=== PATIENT | female | born 2005 | race Caucasian/White ===

== ENCOUNTER 2025-06-16 09:34 | Emergency (ER) | payer BC, SELFPAY ==
[2025-06-16 09:35] VITALS: BP 125/110; PULSE 156; RESP 18; TEMP 36.6; O2SAT 100; BMI 21.6
--- NOTE | 2025-06-16 10:00 | EKG12_ITS ---
Test Reason : PALP Blood Pressure : */* mmHG Vent. Rate : 150 BPM Atrial Rate : 150 BPM P-R Int : 128 ms QRS Dur : 74 ms QT Int : 266 ms P-R-T Axes : 81 83 59 degrees QTcB Int : 420 ms Critical Test Result: High HR Sinus tachycardia Nonspecific ST abnormality Abnormal ECG Confirmed by ELVI MO, ROSI ([id number]), television news video editor KORINA ALFORD ([id number]) on 06/18/2025 7:47:22 AM Referred By: ER Confirmed By: ROSI BOLES MD
--- NOTE | 2025-06-16 10:00 | RAD_ITS ---
PROCEDURE: CHEST PA AND LATERAL 06/16/2025 REASON FOR EXAM: CHEST PAIN TECHNIQUE: Procedure Code: RADCXR Modality: DX Procedure: CHEST PA AND LATERAL COMPARISON: None FINDINGS: Hardware and support lines: None. Heart: Negative. Lungs: Negative for infiltrates, or pulmonary edema. Pleura: No pleural thickening. No pleural effusion. Mediastinum and aorta: Negative for hilar adenopathy. Normal thoracic aorta. Bones: Negative for fractures. Other: Remainder of the exam negative. RAD/Chest PA and Lateral IMPRESSION: Negative chest. Reading Location: [id number]
[2025-06-16 10:12] LABS: Hematocrit 47.6 % (37-47); Hemoglobin 16.3 g/dL (12.0-15.0); Immature Granulocytes Count 0.030 X10^3/uL (0.0-0.0); Mean Corp Hgb Conc 34.2 g/dL (32-36); Mean Corpuscular Volume 85.9 fL (81-99); Mean Platelet Vol. 9.8 fl (6.2-12.0); NRBC Flagged by Analyzer 0 % (0-5); Platelet Count 317 K/mm3 (150-450); RBC Distribution Width CV 12.7 % (11.6-14.6); RBC Distribution Width SD 40.1 fl (35.1-43.9); Red Blood Count 5.54 M/mm3 (4.2-5.4); White Blood Count 9.1 K/mm3 (4.4-11.0)
[2025-06-16 10:32] LABS: D-Dimer Quantitative (DVT/PE) < 0.27 FEU/ug/m (0.27-0.49)
[2025-06-16 10:34] VITALS: BP 125/93; PULSE 118
[2025-06-16 10:35] LABS: Anion Gap 16 (5-15); BUN 15 mg/dL (4-19); BUN/Creat Ratio 19.9 RATIO (10-20); Calcium,Total 9.8 mg/dL (7.6-11.0); Carbon Dioxide 21.1 mmol/L (21.0-32.0); Chloride 104 mmol/L (98-108); Estimated Creatinine Clearance 106.25 ml/min (50-250); Glucose 102 mg/dL (70-99); Magnesium 2.4 mg/dL (1.5-2.2); Potassium 3.7 mmol/L (3.3-5.1); Troponin T High Sensitivity < 6 ng/L (<=14)
[2025-06-16] MEDS: 0.9% Normal Saline (1000mL) 1,000 ML 999 ML IV (10:46)
[2025-06-16 11:00] VITALS: BP 125/93; PULSE 108; RESP 14; TEMP 36.7; O2SAT 100
--- NOTE | 2025-06-16 11:01 | EX.ED.DYSGE1 ---
HPI History of Present Illness Chief Complaint: Palpitations Narrative Narrative: Patient is a 19-year-old female presenting to the emergency department for racing heart rate. Patient has a past medical history of anxiety, treated since she was 5 years old with Zoloft. Patient states that for the past few weeks she has been having worsening anxiety associated with racing heart. States that this morning when she woke up she felt her heart racing and decided to come be evaluated. She denies any chest pain, shortness of breath, nausea, vomiting, abdominal pain. Denies any feelings of irregular heartbeat. Denies any drugs, alcohol or stimulant use. States she drinks about a cup of coffee a day. She denies any history of any cardiac problems in herself. Mom is on FaceTime in the room with daughter and states that the patient just needs reassured that she is not dying. [facility] Medical History Anxiety Home Medications ?Medication ?Instructions ?Recorded ?Last Taken ?Type ferrous sulfate 325 mg (65 mg 325 mg PO DAILY 06/16/25 Unknown History iron) tablet (Feosol) hydroxyzine HCl 25 mg tablet 25 mg PO BID PRN anxiety #14 tabs 06/16/25 Unknown Rx sertraline 100 mg tablet (Zoloft) 100 mg PO DAILY 06/16/25 Unknown History Allergy/AdvReac Type Severity Reaction Status Date / Time No Known Allergies Allergy Verified 06/16/25 09:35 Social History Smoking Status: Never smoker ROS ROS ED ROS Narrative See HPI EXAM Physical Exam Narrative Exam Narrative: Vital signs: Reviewed General: Alert and oriented x 3. No acute distress. Well-appearing HEENT: Head is normocephalic and atraumatic, sinuses nontender, pupils equal round and reactive. Nares are patent. Oropharynx and throat exams normal. Neck: Supple without lymphadenopathy nontender Cardiovascular: Tachycardic rate and regular rhythm, no murmurs. No rubs or gallops. Normal S1 and S2 Respiratory: Clear to auscultation bilaterally. No wheezes, rales, rhonchi Abdominal: Soft and nontender. Normal bowel sounds. No guarding or rebound. Nonsurgical abdomen Extremities: No lower extremity edema noted. No tenderness. No bruising. Normal range of motion. Normal sensation. Skin: No rash or redness. The rest of the physical exam is unremarkable Const Vital Signs: 06/16/25 09:35 06/16/25 09:45 06/16/25 10:34 Temperature 98 F Temperature Source Oral Pulse Rate 156 H 118 H Respiratory Rate 18 Respiratory Effort Normal Non-Labored Blood Pressure 125/110 H 125/93 H Blood Pressure Mean 115 103 Pulse Ox 100 Oxygen Delivery Method Room Air 06/16/25 11:00 06/16/25 11:43 Temperature 98.1 F 98.1 F Temperature Source Oral Pulse Rate 108 H 108 H Respiratory Rate 14 14 Respiratory Effort Blood Pressure 125/93 H 125/93 H Blood Pressure Mean 103 103 Pulse Ox 100 100 Oxygen Delivery Method Room Air MDM MDM MDM Narrative Medical decision making narrative: Patient is a 19-year-old female presenting to the emergency department for racing heart rate. Patient was seen and examined. Patient is very anxious and intermittent tearful. Fluid bolus started for her tachycardia. Differential includes but is not limited to: Anxiety, hyperthyroidism, electrolyte imbalance, dehydration, cardiac dysrhythmia, PE EKG with sinus tachycardia initially when she arrives at a rate of 150. Does not appear to be SVT. Does not appear to be irregular like A-fib or a flutter. CBC with no leukocytosis and hemoglobin is 16.3. BMP with a very mild anion gap of 16. Magnesium of 2.4. Appears to be hemoconcentrated. TSH within normal notes. Troponin within normal limits. D-dimer is negative. Chest x-ray reviewed by myself, no opacities, pneumothorax or wide mediastinum. Radiology read with no acute abnormalities. Urine is negative. Patient was updated on the negative workup. I do feel like this is her anxiety with the negative workup. Heart rate has now improved to 108. Does again appear to be sinus tachycardia. I did prescribe her short course of Atarax to take as needed for her anxiety. Patient discharged from the Emergency Department. I do not feel that the patient's evaluation reveals any acute reason for admission at this time. I instructed them to either follow-up with their primary care physician or promptly return to the Emergency Department for reevaluation should symptoms worsen or new symptoms develop. I explained what symptoms would indicate the need to return to the emergency department. Shared decision making was used. The patient voiced understanding of the treatment plan and is agreeable with it. Clinical impression Anxiety Sinus tachycardia History & Record Review Discussion w/independent historian: Patient and Family Lab Data Attestation: I reviewed the patient's lab results. Labs: Laboratory Results - last 24 hr 06/16/25 06/16/25 09:53 11:15 WBC 9.1 RBC 5.54 H Hgb 16.3 H Hct 47.6 H MCV 85.9 MCH 29.4 MCHC 34.2 RDW Std Deviation 40.1 RDW Coeff of Lizzette 12.7 Plt Count 317 MPV 9.8 Immature Gran % (Auto) 0.300 Neut % (Auto) 73.4 H Lymph % (Auto) 18.7 L [place] % (Auto) 6.4 Eos % (Auto) 0.6 Baso % (Auto) 0.6 Absolute Neuts (auto) 6.7 Absolute Lymphs (auto) 1.70 Nucleated RBC % 0 D-Dimer Quant (PE/DVT) < 0.27 L Sodium 141 Potassium 3.7 Chloride 104 Carbon Dioxide 21.1 Anion Gap 16 H BUN 15 Creatinine 0.76 Estim Creat Clear Calc 106.25 Est GFR (MDRD) Non-Af 115 BUN/Creatinine Ratio 19.9 Glucose 102 H Calcium 9.8 Magnesium 2.4 H Troponin T High Sens < 6 TSH 2.060 Urine Test Negative Radiography Chest X-Ray - ED: 2 View, Read by ED Physician, Normal, No Acute Disease and No Infiltrates Diagnostic Testing: Clinical Impression(s) from Imaging Studies Chest X-Ray 06/16/25 10:00 IMPRESSION: Negative chest. Reading Location: [id number] Discharge Plan Triage Chief Complaint: Palpitations ED Provider: Danielle Nava Dx/Rx/DC Orders Clinical Impression: Sinus tachycardia, Anxiety Instructions: Your Body's Response to Anxiety, Anxiety Disorders Tx, Understanding Tachycardia, ED Heart Palpitations Prescriptions: New hydroxyzine HCl 25 mg tablet 25 mg PO BID PRN (Reason: anxiety) Qty: 14 0RF No Action sertraline [Zoloft] 100 mg tablet 100 mg PO DAILY ferrous sulfate [Feosol] 325 mg (65 mg iron) tablet 325 mg PO DAILY Primary Care Provider: Care Physician,No Primary Referrals: Jos Medina MD [Med Staff - Active Staff, Family Practice] - As soon as possible Care Physician,No Primary [Primary Care Provider, Medical] Activity Restrictions/Additional Instructions: Please follow-up with your psychiatrist to discuss your emergency department visit today. You can take the Atarax every 12 hours as needed for anxiety feeling. Your evaluation in the Emergency Department did not reveal any acute reason for admission. However, I want to emphasize that you may be early in the course of a disease process or illness even if it is not present. For this reason you should follow-up within 24 hours for reevaluation with either your primary care physician or if necessary back here in the Emergency Department. You should return to the Emergency Department immediately if your symptoms worsen or new symptoms develop. Print Language: Danish Disposition Disposition: Home, Self Care Discharge Date/Time: 06/16/25 11:53
[2025-06-16] MEDS: hydrOXYzine PAM 25 MG Capsule PO (11:07)
[2025-06-16 11:35] LABS: Internal QC Validated? YES +Cl - CLEAR BKGD; Pregnancy, Urine Negative Negative
[2025-06-16 11:36] LABS: Record Kit Lot#,Urine Preg 980607
[2025-06-16 11:43] VITALS: BP 125/93; PULSE 108; RESP 14; TEMP 36.7; O2SAT 100
== END 2025-06-16 11:53 | disposition home or self-care (01) ==
PROVIDERS: Emergency Provider Student in an Organized Health Care Education/Training Program; Visit Provider Student in an Organized Health Care Education/Training Program
DX: F41.9 Anxiety disorder, unspecified (principal); R00.0 Tachycardia, unspecified; Z79.899 Other long term (current) drug therapy
CPT/HCPCS: 71046; 80048; 81025; 83735; 84443; 84484; 85025; 85379; 93005; 96360; 99284; A4216